=== PATIENT | female | born 1965 | race African-American/Black ===

== ENCOUNTER → 2016-05-21 | Day surgery (SDC) | payer OTHER ==
[~2016-05-21] MED LIST: ASPI81TA2 PO; CALC600T4 PO; FENTANYL PF 100 MCG/2 ML VIAL. ONE; IV RINGERS,LACTATED 1000ML 1,000 ML IV SCH; LIDOCAINE 2% PF Vial for OR 5 ML VIAL. ONE; LOSA1TAB16 PO; OMEG1CAP28 PO; OMEP20CA9 PO; PROPOFOL 20 ML IV ONE; VENL150C6 PO
[2016-05-21 10:39] VITALS: BP 119/71
== END | disposition home or self-care (01) ==
LOC: ENDOS 09:29
PROVIDERS: ATTEND Internal Medicine Gastroenterology
DX: K29.50 Unspecified chronic gastritis without bleeding (principal); K21.9 Gastro-esophageal reflux disease without esophagitis; I10 Essential (primary) hypertension; F41.9 Anxiety disorder, unspecified; F32.9 Major depressive disorder, single episode, unspecified; Z83.3 Family history of diabetes mellitus
CPT/HCPCS: 43235; J2704; J3010

== ENCOUNTER → 2016-10-08 | Outpatient (CLI) | payer OTHER ==
[2016-05-21 10:39] VITALS: BP 119/71
[~2016-10-08] MED LIST changes: +ASPI-630 PO; -ASPI81TA2 PO; -FENTANYL PF 100 MCG/2 ML VIAL. ONE; -IV RINGERS,LACTATED 1000ML 1,000 ML IV SCH; -LIDOCAINE 2% PF Vial for OR 5 ML VIAL. ONE; -PROPOFOL 20 ML IV ONE
== END | disposition home or self-care (01) ==
LOC: LAB 14:12
PROVIDERS: ATTEND Physician Assistant
DX: R10.30 Lower abdominal pain, unspecified (principal); R19.7 Diarrhea, unspecified
CPT/HCPCS: 36415

== ENCOUNTER → 2016-12-22 | Outpatient (CLI) | payer OTHER ==
[2016-05-21 10:39] VITALS: BP 119/71
[2016-12-22 09:00] LABS: BASO % 1 % (0-3); EOS % 1 % (0-3); HEMOGLOBIN 13.5 g/dL (12.0-15.5); LYMPH # 1.1 x10^3/uL (1.0-4.8); LYMPH % 23 % (24-48); MEAN CORPUSCULAR HEMOGLOBIN 29 pg (25-35); MEAN CORPUSCULAR HGB CONC 33 g/dL (31-37); MEAN CORPUSCULAR VOLUME 88 fL (79-100); MONO % 9 % (0-9); NEUT % 67 % (31-73); PLATELET COUNT 235 x10^3/uL (140-400); RED BLOOD COUNT 4.68 x10^6/uL (3.50-5.40); RED CELL DISTRIBUTION WIDTH 13.9 % (11.5-14.5); WHITE BLOOD COUNT 4.9 x10^3/uL (4.0-11.0)
[2016-12-22 09:11] LABS: ALBUMIN/GLOBULIN RATIO 1.1 (1.0-1.7); CALCIUM 8.7 mg/dL (8.5-10.1); CREATININE 0.8 mg/dL (0.6-1.0); GFR 92.2; POTASSIUM 4.3 mmol/L (3.5-5.1); TOTAL BILIRUBIN 0.4 mg/dL (0.2-1.0); TOTAL PROTEIN 7.5 g/dL (6.4-8.2)
== END | disposition home or self-care (01) ==
LOC: LAB 08:09
PROVIDERS: ATTEND Physician Assistant
DX: I10 Essential (primary) hypertension (principal); R10.13 Epigastric pain; R63.4 Abnormal weight loss
CPT/HCPCS: 36415; 80053; 84443; 85025

== ENCOUNTER → 2017-02-11 | Day surgery (SDC) | payer OTHER ==
[~2017-02-11] MED LIST changes: +IV RINGERS,LACTATED 1000ML 1,000 ML IV SCH; +LIDOCAINE 1% PF 2 ML VIAL. ID PRN; -LOSA1TAB16 PO; +LOSA1TAB19 PO; +MIDAZOLAM HCL/PF 2 MG/2 ML VIAL. IV PRN; +PROPOFOL 20 ML IV ONE; +fentaNYL PF VIAL 100 MCG/2 ML VIAL IV PRN
[2017-02-11 10:37] VITALS: BP 162/88
--- NOTE | 2017-02-11 22:39 | HP ---
ADMIT DATE: 02/11/2017 REFERRING PHYSICIAN: BAYRON Carey REASON FOR CONSULTATION: Abdominal pain and weight loss. HISTORY OF PRESENT ILLNESS: A 51-year-old -[place] female whose past medical history is significant for anxiety, depression and hypertension seen with persistent upper abdominal pain, is not associated with any diarrhea, constipation, melena or hematochezia. Family history is unrevealing for colon polyps or colon cancer. Her weight has not decreased in the recent past with a decreased appetite. The patient has had some relief of her symptoms with omeprazole 20 mg daily, but when stops has recurrent symptoms and continued issues. She is here today for further evaluation. PAST MEDICAL HISTORY: Hypertension, anxiety and depression. ALLERGIES: None. MEDICATIONS: Include: Losartan, omeprazole and ____. FAMILY AND SOCIAL HISTORY: Significant for hypertension and diabetes with her mother. She is a daily smoker and nondrinker. PAST SURGICAL HISTORY: Hysterectomy. REVIEW OF SYSTEMS: Per records. PHYSICAL EXAMINATION: GENERAL: Reveals a well-nourished, well-developed -[place] female. VITAL SIGNS: Temperature is 98, pulse 67 and respirations 18. HEENT: Normocephalic and atraumatic head. Pupils and extraocular muscles are not tested. Sclerae anicteric. NECK: Supple. LUNGS: Clear. CARDIOVASCULAR: Reveals S1, S2 without S3, S4 or appreciable murmur. ABDOMEN: Soft abdomen, normal bowel sounds, without appreciable hepatosplenomegaly. EXTREMITIES: Reveals no cyanosis, clubbing or edema. IMPRESSION: Abdominal pain with weight loss, etiology is to be determined. Recommend colonoscopy today to assess for inflammatory bowel disease, colon polyps or colon cancer. Risks and benefits have been discussed with the patient including the risk of perforation. She is willing to proceed at this time. JUDIE STALLWORTH MD DR: URMILA/jason JOB#: [id number] / [id number]
== END | disposition home or self-care (01) ==
LOC: SURG 08:44
PROVIDERS: ATTEND Internal Medicine Gastroenterology
DX: K64.0 First degree hemorrhoids (principal); I10 Essential (primary) hypertension; K21.9 Gastro-esophageal reflux disease without esophagitis; F41.9 Anxiety disorder, unspecified; F32.9 Major depressive disorder, single episode, unspecified; Z90.710 Acquired absence of both cervix and uterus; Z72.0 Tobacco use
CPT/HCPCS: 45378; J2704

== ENCOUNTER → 2017-02-18 | Outpatient (CLI) | payer OTHER ==
[2017-02-11 10:37] VITALS: BP 162/88
[~2017-02-18] MED LIST changes: +IOHEXOL 240 MG/ML 50ML VIAL. PO ONE; +IOHEXOL 300 MG/ML 100ML VIAL. IV ONE; -IV RINGERS,LACTATED 1000ML 1,000 ML IV SCH; -LIDOCAINE 1% PF 2 ML VIAL. ID PRN; -MIDAZOLAM HCL/PF 2 MG/2 ML VIAL. IV PRN; -PROPOFOL 20 ML IV ONE; -fentaNYL PF VIAL 100 MCG/2 ML VIAL IV PRN
--- NOTE | 2017-02-18 12:45 | RAD ---
CT abdomen and pelvis with contrast 02/18/2017 Clinical indication: Abdominal pain and weight loss. Comparison: CT abdomen and pelvis without contrast 10/25/2014 Technique: Multiple CT images of the abdomen and pelvis were obtained following the intravenous menstruation of 75 mL Omnipaque 300. RS Compliance Statement: One or more of the following individualized dose reduction techniques were utilized for this examination: 1. Automated exposure control 2. Adjustment of the mA and/or kV according to patient size 3. Use of iterative reconstruction technique Findings: Heart size is normal. Visualized lung bases are clear. The liver is normal in size and morphology. There is focal fatty infiltration the liver adjacent to the falciform. There is a stable 0.4 cm hypodensity in hepatic segment 7 series 3/image 13. There is a new 0.5 cm hepatic hypodensity in segment 2 series 3/image 11. Gallbladder, spleen, adrenal glands, pancreas and kidneys are unremarkable. No bile duct dilatation. Abdominal aorta is normal caliber with mild calcified atheromatous disease. No retroperitoneal or mesenteric lymphadenopathy. No abdominal free fluid. Small and large bowel loops are normal in caliber without obstruction. Appendix is normal in appearance. Urinary bladder is decompressed prior hysterectomy with the vaginal cuff unremarkable. There is asymmetric enlargement of the left ovary relative to the right measuring 3.2 cm series 3/image 58. No pelvic free fluid. No iliac or inguinal lymphadenopathy. Impression: 1. No discrete hepatic mass or lymphadenopathy. 2. Asymmetric enlargement of the left ovary relative to the right which may be physiologic. Follow-up transvaginal ultrasound is recommended to exclude underlying mass. 3. Two subcentimeter hepatic hypodensities, one of which has developed since 2014, and is too small to definitely characterize.
== END | disposition home or self-care (01) ==
LOC: CT 10:33
PROVIDERS: ATTEND Internal Medicine Gastroenterology
DX: R10.9 Unspecified abdominal pain (principal); R63.4 Abnormal weight loss
CPT/HCPCS: 74177; Q9966; Q9967

== ENCOUNTER → 2017-03-21 | Outpatient (CLI) | payer OTHER ==
[2017-02-11 10:37] VITALS: BP 162/88
[~2017-03-21] MED LIST changes: -IOHEXOL 240 MG/ML 50ML VIAL. PO ONE; -IOHEXOL 300 MG/ML 100ML VIAL. IV ONE
--- NOTE | 2017-03-21 17:09 | RAD ---
DATE: 03/21/2017 EXAM: DIGITAL SCREEN BILAT W/CAD HISTORY: Screening mammogram COMPARISON: Previous mammogram from 2016 and 2014 This study was interpreted with the benefit of Computerized Aided Detection (CAD). FINDINGS: Breast Density: HETERO The breast parenchyma Is heterogeneously dense, which could reduce sensitivity of mammography. Breast parenchyma level C. This skin and nipples are within normal limits. No suspicious calcifications, spiculated mass or areas of architectural distortion. IMPRESSION: No mammographic evidence of malignancy. Stable mammogram. BI-RADS CATEGORY: 2 BENIGN FINDING(S) RECOMMENDED FOLLOW-UP: 12M 12 MONTH FOLLOW-UP PQRS compliance statement: Patient information was entered into a reminder system with a target due date for the next mammogram. Mammography is a sensitive method for finding small breast cancers, but it does not detect them all and is not a substitute for careful clinical examination. A negative mammogram does not negate a clinically suspicious finding and should not result in delay in biopsying a clinically suspicious abnormality. "Our facility is accredited by the [employer] Mammography Program."
== END | disposition home or self-care (01) ==
LOC: MAMMO 13:37
PROVIDERS: ATTEND Physician Assistant
DX: Z12.31 Encounter for screening mammogram for malignant neoplasm of breast (principal)
CPT/HCPCS: G0202; 77067

== ENCOUNTER → 2017-04-19 | Outpatient (CLI) | payer OTHER ==
[2017-04-19 09:28] LABS: ANION GAP 9 (6-14); BLOOD UREA NITROGEN 9 mg/dL (7-20); CALCIUM 8.8 mg/dL (8.5-10.1); CARBON DIOXIDE 31 mmol/L (21-32); CHLORIDE 100 mmol/L (98-107); CHOLESTEROL 215 mg/dL (0-200); CHOLESTEROL/HDL RATIO 2.2; CREATININE 0.7 mg/dL (0.6-1.0); GFR 107.6; GLUCOSE 96 mg/dL (70-99); HDLC 100 mg/dL (40-60); LDLC 106 mg/dL (0-100); NON-HDL CHOLESTEROL 115 mg/dL (0-129); POTASSIUM 4.4 mmol/L (3.5-5.1); SODIUM 140 mmol/L (136-145); TRIGLYCERIDES 46 mg/dL (0-150); VLDLC 9 mg/dL (0-40)
[2017-04-19 09:31] LABS: THYROID STIM HORMONE (TSH) 1.995 uIU/mL (0.358-3.74)
[2017-04-19 09:58] LABS: VITAMIN-B12 524 pg/mL (247-911)
[2017-04-19 09:58] LABS: FOLATE 8.59 ng/ml (3.2-20.0)
[2017-04-19 19:17] LABS: HEMOGLOBIN A1C 5.3 % (4.8-5.6)
[2017-04-20 22:12] LABS: LEAD LEVEL 1 ug/dL (0-19)
== END | disposition home or self-care (01) ==
LOC: LAB 08:22
DX: Z13.220 Encounter for screening for lipoid disorders (principal); Z13.1 Encounter for screening for diabetes mellitus; G62.9 Polyneuropathy, unspecified
CPT/HCPCS: 36415; 80048; 80061; 82607; 82746; 83036; 83655; 84443

== ENCOUNTER → 2017-05-13 | Outpatient (CLI) | payer OTHER | END | disposition home or self-care (01) | LOC: US 15:03 | DX: N83.201 Unspecified ovarian cyst, right side (principal); N83.202 Unspecified ovarian cyst, left side | CPT/HCPCS: 76830; 76856 ==

== ENCOUNTER → 2017-05-25 | Outpatient (CLI) | payer OTHER ==
[2017-05-25 20:14] LABS: CA 125 15.8 U/mL (0.0-38.1)
== END | disposition home or self-care (01) ==
LOC: LAB 14:06
DX: N83.209 Unspecified ovarian cyst, unspecified side (principal); R30.0 Dysuria
CPT/HCPCS: 36415; 86304; 87086

== ENCOUNTER → 2017-11-09 | Outpatient (CLI) | payer OTHER ==
[2017-11-09 07:59] LABS: ADD MAN DIFF? NO
[2017-11-09 08:17] LABS: BASO # 0.1 x10^3/uL (0.0-0.2); BASO % 2 % (0-3); EOS # 0.1 x10^3/uL (0.0-0.7); EOS % 2 % (0-3); HEMOGLOBIN 13.9 g/dL (12.0-15.5); LYMPH # 1.4 x10^3/uL (1.0-4.8); LYMPH % 33 % (24-48); MEAN CORPUSCULAR HEMOGLOBIN 28 pg (25-35); MEAN CORPUSCULAR HGB CONC 33 g/dL (31-37); MEAN CORPUSCULAR VOLUME 85 fL (79-100); MONO # 0.4 x10^3/uL (0.0-1.1); MONO % 8 % (0-9); NEUT # 2.3 x10^3uL (1.8-7.7); NEUT % 55 % (31-73); PLATELET COUNT 232 x10^3/uL (140-400); RED BLOOD COUNT 4.92 x10^6/uL (3.50-5.40); RED CELL DISTRIBUTION WIDTH 13.3 % (11.5-14.5); WHITE BLOOD COUNT 4.3 x10^3/uL (4.0-11.0)
[2017-11-09 08:35] LABS: ALBUMIN 3.7 g/dL (3.4-5.0); ALK PHOS 61 U/L (46-116); ALT (SGPT) 38 U/L (14-59); ANION GAP 6 (6-14); AST (SGOT) 24 U/L (15-37); BLOOD UREA NITROGEN 11 mg/dL (7-20); BUN/CREATININE RATIO 14 (6-20); CALCIUM 8.8 mg/dL (8.5-10.1); CARBON DIOXIDE 31 mmol/L (21-32); CHLORIDE 101 mmol/L (98-107); CHOLESTEROL 194 mg/dL (0-200); CHOLESTEROL/HDL RATIO 2.3; CREATININE 0.8 mg/dL (0.6-1.0); GFR 91.9; GLUCOSE 96 mg/dL (70-99); HDLC 84 mg/dL (40-60); LDLC 103 mg/dL (0-100); NON-HDL CHOLESTEROL 110 mg/dL (0-129); POTASSIUM 3.6 mmol/L (3.5-5.1); SODIUM 138 mmol/L (136-145); TOTAL BILIRUBIN 0.4 mg/dL (0.2-1.0); TOTAL PROTEIN 7.5 g/dL (6.4-8.2); TRIGLYCERIDES 33 mg/dL (0-150); VLDLC 7 mg/dL (0-40)
[2017-11-09 08:45] LABS: THYROID STIM HORMONE (TSH) 2.566 uIU/mL (0.358-3.74)
[2017-11-09 08:45] LABS: FREE T4 0.87 ng/dL (0.76-1.46)
[2017-11-09 14:33] LABS: FSH 124.1 mIU/mL (.); LUTEINIZING HORMONE 83.4 mIU/mL (.)
[2017-11-11 15:33] LABS: ESTRONE LEVEL 14 pg/mL (.)
== END | disposition home or self-care (01) ==
LOC: LAB 06:47
DX: I10 Essential (primary) hypertension (principal); E78.5 Hyperlipidemia, unspecified; R23.2 Flushing; Z87.891 Personal history of nicotine dependence
CPT/HCPCS: 36415; 80053; 80061; 82679; 83001; 83002; 84439; 84443; 85025

== ENCOUNTER → 2018-03-14 | Outpatient (CLI) | payer OTHER ==
[2017-02-11 10:37] VITALS: BP 162/88
--- NOTE | 2018-03-14 16:15 | RAD ---
Exam performed: Nuclear medicine hepatobiliary scan. History: Intermittent epigastric abdominal pain for 4 months Comparison: None available FINDINGS: Following intravenous administration of 5.5 mCi of Choletec tagged with Tc, sequential gamma camera images of the right upper quadrant of the abdomen were obtained. There is prompt accumulation of radionuclide in the liver which appears to be unremarkable Prompt accumulation in the central intrahepatic biliary radicals, gallbladder, common bile duct and small bowel is noted. Patient was given liquid meal and gallbladder ejection fraction was calculated which measures 49% Impression: 1. No evidence of cystic duct obstruction. 2. Normal gallbladder ejection fraction. Electronically signed by: Vin Joe MD (03/14/2018 4:12 PM) [place] [id number]
--- NOTE | 2018-03-14 16:26 | RAD ---
Examination: Ultrasound abdomen complete HISTORY: History of epigastric pain COMPARISON: None available FINDINGS: The visualized pancreas grossly appears unremarkable. The visualized aorta, IVC is within normal limits of dimension. The echogenicity of the liver grossly appears unremarkable. The right lobe of the liver measures 14.1 cm. No evidence of gallstones. The common bile duct measures 2.2 mm in diameter. The right kidney measures 10.1 cm in length. The spleen measures 8.6 cm in length. The left kidney measures 10.6 cm in length. Impression: Unremarkable visualized exam. Electronically signed by: Vin Joe MD (03/14/2018 4:22 PM) [place] [id number]
== END | disposition home or self-care (01) ==
LOC: US 07:23
PROVIDERS: ATTEND Internal Medicine Gastroenterology
DX: R10.13 Epigastric pain (principal)
CPT/HCPCS: 76700; 78227; A9537

== ENCOUNTER → 2018-03-30 | Outpatient (CLI) | payer OTHER ==
[2017-02-11 10:37] VITALS: BP 162/88
--- NOTE | 2018-03-31 15:09 | RAD ---
DATE: 03/30/2018 EXAM: MAMMO LÁZARO SCREENING BILATERAL HISTORY: Routine screening COMPARISON: 03/21/2017, 03/18/2016, 03/17/2015 This study was interpreted with the benefit of Computerized Aided Detection (CAD). Breast Density: HETERO The breast parenchyma is heterogenously dense, which could reduce sensitivity of mammography. Breast parenchyma level C. FINDINGS: 2-D and 3-D tomosynthesis imaging was performed in CC and MLO projections. No spiculated mass or architectural distortion is evident. There are a few scattered microcalcifications in the breasts. These include a cluster in the lateral aspect of the right breast. These are only intermittently visualized in the cc projection on previous studies due to their posterior location. These are visible on the cc view from the 03/17/2015 exam. These calcifications may have progressed slightly. IMPRESSION: Clustered microcalcifications laterally in the right breast. Magnification CC and straight mediolateral views are suggested for optimal characterization. BI-RADS CATEGORY: 0 INCOMPLETE: NEEDS ADDITIONAL IMAGING EVALUATION AND/OR PRIOR MAMMOGRAMS FOR COMPARISON. RECOMMENDED FOLLOW-UP: ADD ADDITIONAL IMAGING PQRS compliance statement: Patient information was entered into a reminder system with a target due date for the next mammogram. Mammography is a sensitive method for finding small breast cancers, but it does not detect them all and is not a substitute for careful clinical examination. A negative mammogram does not negate a clinically suspicious finding and should not result in delay in biopsying a clinically suspicious abnormality. "Our facility is accredited by the [employer] Mammography Program."
== END | disposition home or self-care (01) ==
LOC: MAMMO 15:02
PROVIDERS: ATTEND Physician Assistant Medical
DX: Z12.31 Encounter for screening mammogram for malignant neoplasm of breast (principal)
CPT/HCPCS: 77063; 77067

== ENCOUNTER → 2018-04-10 | Outpatient (CLI) | payer OTHER ==
[2017-02-11 10:37] VITALS: BP 162/88
--- NOTE | 2018-04-10 13:19 | RAD ---
DATE: 04/10/2018 EXAM: DIGITAL DIAGNOSTIC RT HISTORY: Microcalcifications COMPARISON: 03/30/2018, 03/21/2017, 03/18/2016, 03/17/2015. This study was interpreted with the benefit of Computerized Aided Detection (CAD). Breast Density: HETERO The breast parenchyma is heterogenously dense, which could reduce sensitivity of mammography. Breast parenchyma level C. FINDINGS: Additional CC magnification and straight medial lateral views of the right breast were obtained and correlated with the screening images.There are faint microcalcifications present laterally and posteriorly. Many of these were present in retrospect on the previous studies. They tend to be rounded and somewhat scattered. The findings favor a benign etiology such as sclerosing adenosis. IMPRESSION: Probably benign right breast microcalcifications. Mammographic surveillance consisting of right mammograms in 6 months and bilateral mammography at one year is suggested. BI-RADS CATEGORY: 3 PROBABLY BENIGN FINDING(S)-SHORT INTERVAL FOLLOW-UP SUGGESTED RECOMMENDED FOLLOW-UP: 6M 6 MONTH FOLLOW-UP PQRS compliance statement: Patient information was entered into a reminder system with a target due date for the next mammogram. Mammography is a sensitive method for finding small breast cancers, but it does not detect them all and is not a substitute for careful clinical examination. A negative mammogram does not negate a clinically suspicious finding and should not result in delay in biopsying a clinically suspicious abnormality. "Our facility is accredited by the [employer] Mammography Program."
== END | disposition home or self-care (01) ==
LOC: MAMMO 12:31
PROVIDERS: ATTEND Physician Assistant Medical
DX: R92.8 Other abnormal and inconclusive findings on diagnostic imaging of breast (principal)
CPT/HCPCS: 77065

== ENCOUNTER → 2018-05-31 | Outpatient (CLI) | payer OTHER ==
[2017-02-11 10:37] VITALS: BP 162/88
[~2018-05-31] MED LIST changes: +GABA300C18 PO; +OMEP20CA10 PO; -OMEP20CA9 PO; +PANT20TA2 PO; +SUCR1TAB PO
--- NOTE | 2018-05-31 12:37 | RAD ---
EXAM: Nuclear gastric emptying scan. HISTORY: Pain. COMPARISON: None. TECHNIQUE: Serial static images were obtained over the stomach following oral administration of 1 mCi of 99m-Tc sulfur colloid. FINDINGS: The stomach empties into the small bowel without evidence of reflux in the area of the esophagus. The estimated time for half emptying of gastric contents, i.e. 'gastric emptying time' is 74 minutes (normal is 66 +/- 22 minutes). There is 62% retained tracer activity within the stomach at one hour, 14% retained tracer activity at 2 hours, 4% retained tracer activity at 3 hours, and 1% retained tracer activity at 4 hours. IMPRESSION: Normal gastric imaging scan. The gastric emptying half-time is within normal limits. Electronically signed by: Zuri Knox MD (05/31/2018 12:34 PM) [facility]
== END | disposition home or self-care (01) ==
LOC: NM 07:34
PROVIDERS: ATTEND Internal Medicine Gastroenterology
DX: R10.13 Epigastric pain (principal)
CPT/HCPCS: 78264; A9541

== ENCOUNTER → 2018-06-30 | Day surgery (SDC) | payer OTHER ==
[~2018-06-30] MED LIST changes: +IV RINGERS,LACTATED 1000ML 1,000 ML IV SCH; +LIDOCAINE 2% PF 5 ML VIAL. ONE; +PROPOFOL 20 ML IV ONE
[2018-06-30 11:24] VITALS: BP 155/91
--- NOTE | 2018-07-01 01:55 | CONS ---
DATE OF CONSULTATION: 06/30/2018 HISTORY OF PRESENT ILLNESS: This is a 52-year-old female with past medical history of anxiety, depression, hypertension, seen with persistent epigastric abdominal pain associated with bloating, belching, nausea. The patient has been on Protonix and Carafate with minimal improvement. Last for hours when present. She has avoided fatty and greasy foods without improvement and has undergone prior emptying study, which was within normal limits and ejection fraction of 49% on her PIPIDA scan and no gallstones seen on ultrasound. With continued issues, she requests additional evaluation. PAST MEDICAL HISTORY: Anxiety, depression, hypertension. ALLERGIES: None. MEDICATIONS: Include gabapentin, losartan, pantoprazole, sucralfate, and venlafaxine. FAMILY AND SOCIAL HISTORY: Significant for diabetes and hypertension with her mother. She is a social drinker, nonsmoker, but currently a smoker. FAMILY HISTORY: Noncontributory. PAST SURGICAL HISTORY: Hysterectomy. REVIEW OF SYSTEMS: Per records. PHYSICAL EXAMINATION: GENERAL: Reveals a well-nourished, well-developed female who is alert and who is alert and cooperative, in no acute distress. VITAL SIGNS: Temperature 97, pulse 72, respiratory rate 20. HEENT: Normocephalic and atraumatic head. Pupils and extraocular muscles are not tested. Sclerae anicteric. NECK: Supple. LUNGS: Clear. CARDIOVASCULAR: Reveals an S1, S2 without S3, S4 or appreciable murmur. ABDOMEN: Reveals epigastric tenderness to deep palpation. EXTREMITIES: Reveals no cyanosis, clubbing, edema. IMPRESSION: Abdominal pain with persistent bloating and belching, normal gastric emptying study and PIPIDA scan, and ultrasound. We will recommend upper endoscopy to further assess for ulcer or celiac disease, non-ulcer dyspepsia. Risks and benefits of the procedure have been discussed with the patient including risk of hemorrhage and perforation and is willing to proceed at this time. If this is unrevealing, then cardiac testing to assess for cardiac disease would be pursued for right coronary artery disease. JUDIE STALLWORTH MD DR: URMILA/jason JOB#: [id number] / [id number]
--- NOTE | 2018-07-03 16:07 | PATHOLOGY ---
[facility] Accession Number: [id number] . 01 Material submitted: . DUODENAL BIOPSY . 01 Clinical history: . Epigastric pain, rule out celiac disease . 02 Diagnosis: Duodenal biopsy: - No significant pathologic abnormalities. LB/07/03/2018 . 02 Comment: Sections of the duodenal biopsy reveal multiple segments of small intestine mucosa. Where best oriented, the mucosal villi show no sprue-like changes or significant inflammatory changes. (JPM/db; 07/03/2018) . 02 Electronically signed: . Bony Torres MD, Pathologist NPI- [id number] . 01 Gross description: . The specimen is received in formalin, labeled "Ezra Maggy, duodenal biopsies", are multiple kerns, mucosal fragments measuring 0.7 x 0.7 x 0.2 cm in aggregate, entirely submitted in A1. ([facility]; 06/30/2018) [facility] . 02 Pathologist provided ICD-10: R10.13 . 02 CPT . 538999 Specimen Comment: A courtesy copy of this report has been sent to Specimen Comment: [phone]. Specimen Comment: Report sent to Performed at: 01 [facility] [address], [place] [id number] MD Ronaldo Mcallister MD Phone: [phone] Performed at: 02 [facility] [address] [place], [place] [id number] MD Bony Torres MD Phone: [phone]
== END | disposition home or self-care (01) ==
LOC: SURG 09:26
PROVIDERS: ATTEND Internal Medicine Gastroenterology
DX: K31.89 Other diseases of stomach and duodenum (principal); R10.13 Epigastric pain; I10 Essential (primary) hypertension; F41.9 Anxiety disorder, unspecified; F32.9 Major depressive disorder, single episode, unspecified; Z79.899 Other long term (current) drug therapy; Z83.3 Family history of diabetes mellitus; Z82.49 Family history of ischemic heart disease and other diseases of the circulatory system; Z72.89 Other problems related to lifestyle; F17.210 Nicotine dependence, cigarettes, uncomplicated; Z90.710 Acquired absence of both cervix and uterus
CPT/HCPCS: 43239; 88305; J2001; J2704

== ENCOUNTER → 2018-08-11 | Outpatient (CLI) | payer OTHER ==
[2018-06-30 11:24] VITALS: BP 155/91
[~2018-08-11] MED LIST changes: -IV RINGERS,LACTATED 1000ML 1,000 ML IV SCH; -LIDOCAINE 2% PF 5 ML VIAL. ONE; -PROPOFOL 20 ML IV ONE; +REGADENOSON 0.4 MG/5 ML DISP.SYRIN. IV ONE
--- NOTE | 2018-08-11 13:53 | RAD ---
MR#: [id number] Date of Study: 08/11/2018 Ordering Physician: LALI CRUZ Referring Physician: KASEY PAK Tech: LIBRADO Zhou APPROVED REPORT Test Type: Pharmacological Stress Nurse/Tech: Nik Marie RN Test Indications: chest pain Cardiac History: HTN Medications: See Electronic Medical Record Medical History: See Electronic Medical Record Resting ECG: SR Resting Heart Rate: 84 bpm Resting Blood Pressure: 136/80mmHg Pretest Chest Pain: None Nurse/Tech Notes Lungs CTA, S1S2. Pt first atttempted treadmill but was unable to reach target heartrate Consent: The procedure was explained to the patient in lay terms. Informed consent was witnessed. Alverto eout was entered into ice. History and Stress Test performed by Nik Marie RN Pharm. Details Pharmacologic stress testing was performed using 0.4mg per 5ml of regadenoson given intravenously ove r 7-10 seconds. Stress Symptoms Dyspnea POST EXERCISE Reason for Termination: Infusion complete Max HR: 116 bpm Max Blood Pressure: 128/78mmHg Blood Pressure response to exercise: Normal blood pressure response during stress. Heart Rate response to exercise: normal response Chest Pain: No. Arrhythmia: No. ST Change: No. INTERPRETATION Stress EKG Conclusion: Baseline EKG showed sinus rhythm. No ischemic changes at peak stress. No arr hythmias. Imaging Protocol IMAGE PROTOCOL: Rest Tc-99m/stress Tc-99m 1 day Rest: Stress: Viability: Radiopharm.Tc99m KhvxvrngsIc20z Sestamibi Dose10.2mCi 33mCi Duration 16min. 13min. Img Date 08/11/2018 08/11/2018 Inj-Img Isui56dwa. 60min. Rest Admin Site:IV - Right ForearmAdministrator:Zuri Dahl, RT (R)(N) Stress Admin Site: IV - Right ForearmAdministrator: KASEY ArzolaTCJulissa, ARRT (R)(N) STRESS DATA End Diast. Vol.73.0mlLVEDV index BSA42.0ml End Syst. Vol.22.0mlLVESV index BSA13.0ml Myocardial Kgud516.0gEject. Ootwvpaj76.0% Stress Scores Regional WT1.00Summed WT4.00 Regional WM0.00Summed WM0.00 Study quality was good. Left Ventricular size was Normal at Rest and Stress. Lung uptake was . Left Ventricular ejection fraction is 70%. The rest and stress images show normal perfusion, normal contraction and thickening. LV Perf. Quant 17 Seg. SSS0.00 17 Seg. SRS0.00 17 Seg. SDS0.00 Stress Defect Extent (% LAD)0.00Rest Defect Extent (% LAD)0.00Rev. Defect Extent (% LAD)0.00 Stress Defect Extent (% LCX) 0.00Rest Defect Extent (% LCX)0.00Rev. Defect Extent (% LCX)0.00 Stress Defect Extent (% RCA)0.00Rest Defect Extent (% RCA)0.00Rev. Defect Extent (% RCA)0.00 Stress Defect Extent (% RIC)0.00Rest Defect Extent (% RIC)0.00Rev. Defect Extent (% RIC)0.00 Conclusion 1. Regadenoson cardioisotope stress test did not show any evidence of ischemia or infarct. 2. Normal left ventricular systolic function with ejection fraction calculated at 70%. 3. Low risk for cardiac events. Signed by : Lali Cruz, Electronically Approved : 08/11/2018 13:52:57
== END | disposition home or self-care (01) ==
LOC: NM 08:28
PROVIDERS: ATTEND Internal Medicine Cardiovascular Disease
DX: R07.9 Chest pain, unspecified (principal); I10 Essential (primary) hypertension
CPT/HCPCS: 78452; 93017; A9500; J2785

== ENCOUNTER → 2018-09-01 | Outpatient (CLI) | payer OTHER ==
[2018-06-30 11:24] VITALS: BP 155/91
[~2018-09-01] MED LIST changes: -REGADENOSON 0.4 MG/5 ML DISP.SYRIN. IV ONE
--- NOTE | 2018-09-01 16:31 | CARD ---
MR#: [id number] Date of Study: 09/01/2018 Ordering Physician: LALI CRUZ, Referring Physician: LALI CRUZ Tech: Ivy Frost RDCS APPROVED REPORT EXAM: Two-dimensional and M-mode echocardiogram with Doppler and color Doppler. Other Information Quality : AverageHR: 65bpm Rhythm : NSR INDICATION Chest Pain 2D DIMENSIONS RVDd2.3 (2.9-3.5cm)Left Atrium(2D)2.6 (1.6-4.0cm) IVSd0.8 (0.7-1.1cm)Aortic Root(2D)3.1 (2.0-3.7cm) LVDd4.4 (3.9-5.9cm)LVOT Diameter2.1 (1.8-2.4cm) PWd0.8 (0.7-1.1cm)LVDs3.4 (2.5-4.0cm) FS (%) 22.4 %SV40.5 ml LVEF(%)46.0 (>50%) M-Mode DIMENSIONS RVDd2.18 (2.1-3.2cm)Left Atrium(MM)2.86 (2.5-4.0cm) IVSd0.65 (0.7-1.1cm)Aortic Root3.12 (2.2-3.7cm) LVDd4.61 (4.0-5.6cm)PWd0.86 (0.7-1.1cm) IVSs0.91 cmFS (%) 24 % LVDs3.50 (2.0-3.8cm)ESV(Teich)50.9 ml PWs1.11 cmLVEF(%)48 (>50%) Aortic Valve AoV Peak [place].112.0cm/sAoV VTI23.1cm AO Peak GR.5.0mmHgLVOT Peak [place].71.6cm/s AO Mean GR.3mmHgAVA (VMAX)2.16cm2 AJIT (VTI)2.20cm2 Mitral Valve MV E Vkvwgllc95.1cm/sMV E Peak Gr.2mmHg MV DECEL [id number] A Qhlrqdlh36.2cm/s MV E Mean Gr.1mmHgE/A Ratio1.2 MV A Jiosxjih044qg Pulmonary Valve PV Peak Nwgatixw38.3cm/s Pulmonary Vein S1 Ldgehlkb51.7cm/sD2 Rluvojvk45.6cm/s PVa rkoxjbck21cpfr LEFT VENTRICLE The left ventricle is normal size. There is normal left ventricular wall thickness. Left ventricle sy stolic function is low normal. The Ejection Fraction is 50%. There is normal LV segmental wall motion . Transmitral Doppler flow pattern is Grade II-pseudonormal filling dynamics. RIGHT VENTRICLE The right ventricle is normal size. There is normal right ventricular wall thickness. The right ventr icular systolic function is normal. ATRIA The left atrium size is normal. The right atrium size is normal. The interatrial septum is intact wit h no evidence for an atrial septal defect or patent foramen ovale as noted on 2-D or Doppler imaging. AORTIC VALVE The aortic valve is not well visualized. Doppler and Color Flow revealed no significant aortic regurg itation. There is no significant aortic valvular stenosis. There is no aortic valvular vegetation. MITRAL VALVE The mitral valve is normal in structure and function. There is no evidence of mitral valve prolapse. There is no mitral valve stenosis. Doppler and Color Flow revealed no mitral valve regurgitation note d. TRICUSPID VALVE The tricuspid valve is normal in structure and function. Doppler and Color Flow revealed no tricuspid valve regurgitation noted. There is no tricuspid valve prolapse or vegetation. There is no tricuspid valve stenosis. PULMONIC VALVE The pulmonic valve is not well visualized. GREAT VESSELS The aortic root is normal in size. The ascending aorta is normal in size. The IVC is normal in size a nd collapses >50% with inspiration. PERICARDIAL EFFUSION There is no evidence of significant pericardial effusion. Critical Notification Critical Value: No <Conclusion> Left ventricle systolic function is low normal. The Ejection Fraction is 50%. There is normal LV segmental wall motion. Signed by : Roger Shelton, Electronically Approved : 09/01/2018 16:31:14
== END | disposition home or self-care (01) ==
LOC: ECHO 13:45
PROVIDERS: ATTEND Internal Medicine Cardiovascular Disease
DX: R07.9 Chest pain, unspecified (principal)
CPT/HCPCS: 93306

== ENCOUNTER → 2018-10-02 | Outpatient (CLI) | payer OTHER ==
[2018-06-30 11:24] VITALS: BP 155/91
--- NOTE | 2018-10-03 11:39 | RAD ---
DATE: 10/02/2018 EXAM: DIGITAL DIAGNOSTIC RT HISTORY: Abnormal mammogram COMPARISON: 03/17/2015, 03/18/2016, 03/21/2017 and 03/30/2018 mammographic exams This study was interpreted with the benefit of Computerized Aided Detection (CAD). Breast Density: HETERO The breast parenchyma is heterogenously dense, which could reduce sensitivity of mammography. Breast parenchyma level C. FINDINGS: Calcifications involving the right upper outer breast are again evident without significant change. No new masses or distortion. No suspicious calcification clusters. IMPRESSION: Follow-up at the time of annual mammography is recommended. Spot magnification imaging and mediolateral or lateral medial view of the right breast are recommended. BI-RADS CATEGORY: 3 PROBABLY BENIGN FINDING(S)-SHORT INTERVAL FOLLOW-UP SUGGESTED RECOMMENDED FOLLOW-UP: 6M 6 MONTH FOLLOW-UP PQRS compliance statement: Patient information was entered into a reminder system with a target due date at the time of annual screening for the next mammogram. Mammography is a sensitive method for finding small breast cancers, but it does not detect them all and is not a substitute for careful clinical examination. A negative mammogram does not negate a clinically suspicious finding and should not result in delay in biopsying a clinically suspicious abnormality. "Our facility is accredited by the [employer] Mammography Program."
== END | disposition home or self-care (01) ==
LOC: MAMMO 15:57
PROVIDERS: ATTEND Family Medicine
DX: R92.1 Mammographic calcification found on diagnostic imaging of breast (principal)
CPT/HCPCS: 77065

== ENCOUNTER → 2018-11-27 | Outpatient (CLI) | payer OTHER ==
[2018-06-30 11:24] VITALS: BP 155/91
== END | disposition home or self-care (01) ==
LOC: SPEC 13:05
PROVIDERS: ATTEND Obstetrics & Gynecology
DX: Z01.419 Encounter for gynecological examination (general) (routine) without abnormal findings (principal)
CPT/HCPCS: 88175

== ENCOUNTER → 2018-12-12 | Outpatient (CLI) | payer OTHER ==
[2018-06-30 11:24] VITALS: BP 155/91
[~2018-12-12] MED LIST changes: +CONTRAST GIVEN. MC PRN; +IOHEXOL 240 MG/ML 50ML VIAL. PO ONE; +IOHEXOL 300 MG/ML 100ML VIAL. IV ONE
--- NOTE | 2018-12-12 15:50 | RAD ---
Examination: CT ABDOMEN WO/W CONTRAST History: Chronic cholecystitis, liver nodule, weight loss Comparison/Correlation: 02/18/2017 CT abdomen and pelvis with oral and IV contrast Findings: Axial images of the abdomen were obtained prior to and following IV contrast administration. Post contrast imaging was performed in the arterial and hepatic venous phases. Oral contrast was administered. Visualized lung bases are clear. Liver, spleen, pancreas, adrenal glands, and kidneys are unremarkable. Few very small to characterize low-attenuation lesions involving the liver are unchanged compared to prior exam. These are of indeterminate significance and do not enhance. Gallbladder fossa is unremarkable. No radiopaque upper collecting system calculi. No enlarged upper abdominal lymph nodes. Large quantity of stool is present within colon. No extraluminal gas or bowel obstruction involving the visualized bowel. No upper abdominal ascites. Impression: No acute process. Large quantity of stool in the colon. No suspicious hepatic lesion. PQRS Compliance Statement: One or more of the following individualized dose reduction techniques were utilized for this examination: 1. Automated exposure control 2. Adjustment of the mA and/or kV according to patient size 3. Use of iterative reconstruction technique Electronically signed by: Santy Arias MD (12/12/2018 3:47 PM) [facility]
== END | disposition home or self-care (01) ==
LOC: CT 07:58
PROVIDERS: ATTEND Internal Medicine
DX: K76.89 Other specified diseases of liver (principal); K81.1 Chronic cholecystitis; R63.4 Abnormal weight loss
CPT/HCPCS: 74170; Q9966; Q9967

== ENCOUNTER → 2019-04-05 | Outpatient (CLI) | payer OTHER ==
[2018-06-30 11:24] VITALS: BP 155/91
[~2019-04-05] MED LIST changes: -CONTRAST GIVEN. MC PRN; -IOHEXOL 240 MG/ML 50ML VIAL. PO ONE; -IOHEXOL 300 MG/ML 100ML VIAL. IV ONE; -OMEP20CA10 PO; +OMEP20CA16 PO
--- NOTE | 2019-04-05 11:02 | RAD ---
DATE: 04/05/2019 EXAM: MAMMO LÁZARO ALEXANDRA MICHAELAT HISTORY: Abnormal mammogram COMPARISON: 03/30/2018 and 03/21/2017 screen mammographic images. 10/02/2018 right unilateral mammographic exam. This study was interpreted with the benefit of Computerized Aided Detection (CAD). Breast Density: HETERO The breast parenchyma is heterogenously dense, which could reduce sensitivity of mammography. Breast parenchyma level C. FINDINGS: Posterior right upper-outer breast calcifications are present. Minimal increase in size of a few of the small coarse calcifications is noted. No suspicious change in calcifications overall otherwise seen. No distortion. No mass. IMPRESSION: No suspicious change BI-RADS CATEGORY: 2 BENIGN FINDING(S) RECOMMENDED FOLLOW-UP: 12M 12 MONTH FOLLOW-UP PQRS compliance statement: Patient information was entered into a reminder system with a target due date for the next mammogram. Mammography is a sensitive method for finding small breast cancers, but it does not detect them all and is not a substitute for careful clinical examination. A negative mammogram does not negate a clinically suspicious finding and should not result in delay in biopsying a clinically suspicious abnormality. "Our facility is accredited by the [employer] Mammography [employer]."
== END | disposition home or self-care (01) ==
LOC: MAMMO 09:42
PROVIDERS: ATTEND Family Medicine
DX: R92.1 Mammographic calcification found on diagnostic imaging of breast (principal)
CPT/HCPCS: 77066; G0279; 77062

== ENCOUNTER → 2020-02-15 | Outpatient (CLI) | payer OTHER ==
[2018-06-30 11:24] VITALS: BP 155/91
[~2020-02-15] MED LIST changes: -CALC600T4 PO; +CALC600T6 PO
[2020-02-15 09:51] LABS: BASO # 0.1 x10^3/uL (0.0-0.2); BASO % 1 % (0-3); EOS # 0.1 x10^3/uL (0.0-0.7); EOS % 2 % (0-3); HEMATOCRIT 41.4 % (36.0-47.0); HEMOGLOBIN 13.4 g/dL (12.0-15.5); LYMPH # 1.2 x10^3/uL (1.0-4.8); LYMPH % 25 % (24-48); MEAN CORPUSCULAR HEMOGLOBIN 28 pg (25-35); MEAN CORPUSCULAR HGB CONC 32 g/dL (31-37); MEAN CORPUSCULAR VOLUME 86 fL (79-100); MONO # 0.4 x10^3/uL (0.0-1.1); MONO % 7 % (0-9); NEUT # 3.2 x10^3/uL (1.8-7.7); NEUT % 65 % (31-73); PLATELET COUNT 241 x10^3/uL (140-400); RED BLOOD COUNT 4.83 x10^6/uL (3.50-5.40); RED CELL DISTRIBUTION WIDTH 13.8 % (11.5-14.5); WHITE BLOOD COUNT 4.9 x10^3/uL (4.0-11.0)
[2020-02-15 09:52] LABS: BILIRUBIN,URINE NEGATIVE (NEG); CLARITY,URINE CLEAR; COLOR,URINE YELLOW; NITRITE,URINE NEGATIVE (NEG); PROTEIN,URINE NEGATIVE (NEG-TRACE); UROBILINOGEN,URINE 0.2 mg/dL (0.2 mg/dL)
[2020-02-15 10:00] LABS: BACTERIA,URINE MODERATE /HPF (0-FEW); RBC,URINE OCC /HPF (0-2)
[2020-02-15 10:02] LABS: ALBUMIN 3.6 g/dL (3.4-5.0); ALBUMIN/GLOBULIN RATIO 0.9 (1.0-1.7); CALCIUM 9.1 mg/dL (8.5-10.1); CREATININE 0.6 mg/dL (0.6-1.0); POTASSIUM 4.6 mmol/L (3.5-5.1); TOTAL BILIRUBIN 0.3 mg/dL (0.2-1.0); TOTAL PROTEIN 7.5 g/dL (6.4-8.2)
[2020-02-15 10:04] LABS: CHOLESTEROL/HDL RATIO 2.2
[2020-02-15 10:09] LABS: FREE T4 0.89 ng/dL (0.76-1.46); THYROID STIM HORMONE (TSH) 1.349 uIU/mL (0.358-3.74)
[2020-02-16 00:10] LABS: HEMOGLOBIN A1C 5.5 % (4.8-5.6)
== END ==
LOC: LAB 06:23
PROVIDERS: ATTEND Physician Assistant
DX: Z13.220 Encounter for screening for lipoid disorders (principal); G90.09 Other idiopathic peripheral autonomic neuropathy; K21.9 Gastro-esophageal reflux disease without esophagitis; E78.5 Hyperlipidemia, unspecified
CPT/HCPCS: 36415; 80053; 80061; 81001; 83036; 84439; 84443; 85025; 87086

== ENCOUNTER → 2020-04-17 | Outpatient (CLI) | payer OTHER ==
[2018-06-30 11:24] VITALS: BP 155/91
--- NOTE | 2020-04-17 10:25 | RAD ---
DATE: 04/17/2020 8:36 AM EXAM: MAMMO LÁZARO SCREENING BILATERAL HISTORY: Screening COMPARISON: 04/05/2019 Bilateral CC and MLO views of the breasts were performed. Bilateral breast tomosynthesis was performed in CC and MLO projections. This study was interpreted with the benefit of Computerized Aided Detection (CAD). FINDINGS: Breast Density: HETERO The breast parenchyma Is heterogeneously dense, which could reduce sensitivity of mammography. Breast parenchyma level C The cluster of calcifications in the posterior upper outer right breast show slight interval coarsening. No suspicious masses, microcalcifications or architectural distortion is present to suggest malignancy in either breast. The visualized axillae are unremarkable. IMPRESSION: No mammographic evidence of malignancy. BI-RADS CATEGORY: 2 BENIGN FINDING(S) RECOMMENDED FOLLOW-UP: 12M 12 MONTH FOLLOW-UP Annual screening mammography is recommended, unless clinically indicated sooner based on symptoms or change in physical exam. PQRS compliance statement: Patient information was entered into a reminder system with a target due date for the next mammogram. Mammography is a sensitive method for finding small breast cancers, but it does not detect them all and is not a substitute for careful clinical examination. A negative mammogram does not negate a clinically suspicious finding and should not result in delay in biopsying a clinically suspicious abnormality. "Our facility is accredited by the [employer] Mammography [employer]."
== END ==
LOC: MAMMO 08:51
PROVIDERS: ATTEND Physician Assistant Medical
DX: Z12.31 Encounter for screening mammogram for malignant neoplasm of breast (principal)
CPT/HCPCS: 77063; 77067

== ENCOUNTER → 2020-07-01 | Outpatient (CLI) | payer OTHER ==
[2018-06-30 11:24] VITALS: BP 155/91
[2020-07-01 17:38] LABS: BILIRUBIN,URINE NEGATIVE (NEG); CLARITY,URINE CLEAR; COLOR,URINE YELLOW; NITRITE,URINE NEGATIVE (NEG); PROTEIN,URINE NEGATIVE (NEG-TRACE); UROBILINOGEN,URINE 0.2 mg/dL (0.2 mg/dL)
[2020-07-01 17:51] LABS: BACTERIA,URINE FEW /HPF (0-FEW)
[2020-07-01 17:52] LABS: RBC,URINE 0 /HPF (0-2)
== END ==
LOC: LAB 17:16
PROVIDERS: ATTEND Physician Assistant Medical
DX: R10.2 Pelvic and perineal pain (principal)
CPT/HCPCS: 81001; 87086

== ENCOUNTER → 2020-10-31 | Outpatient (CLI) | payer OTHER ==
[2018-06-30 11:24] VITALS: BP 155/91
[~2020-10-31] MED LIST changes: -CALC600T6 PO; +CALC600T60 PO
[2020-10-31 14:23] LABS: BASO # 0.1 x10^3/uL (0.0-0.2); BASO % 1 % (0-3); EOS # 0.1 x10^3/uL (0.0-0.7); EOS % 2 % (0-3); HEMATOCRIT 42.3 % (36.0-47.0); HEMOGLOBIN 13.9 g/dL (12.0-15.5); LYMPH # 1.5 x10^3/uL (1.0-4.8); LYMPH % 27 % (24-48); MEAN CORPUSCULAR HEMOGLOBIN 28 pg (25-35); MEAN CORPUSCULAR HGB CONC 33 g/dL (31-37); MEAN CORPUSCULAR VOLUME 85 fL (79-100); MONO # 0.5 x10^3/uL (0.0-1.1); MONO % 9 % (0-9); NEUT # 3.6 x10^3/uL (1.8-7.7); NEUT % 62 % (31-73); PLATELET COUNT 272 x10^3/uL (140-400); RED BLOOD COUNT 4.96 x10^6/uL (3.50-5.40); RED CELL DISTRIBUTION WIDTH 14.1 % (11.5-14.5); WHITE BLOOD COUNT 5.7 x10^3/uL (4.0-11.0)
[2020-10-31 14:25] LABS: CALCIUM 9.4 mg/dL (8.5-10.1); CREATININE 0.7 mg/dL (0.6-1.0); GFR 105.9; POTASSIUM 3.8 mmol/L (3.5-5.1)
== END ==
LOC: LAB 11:14
PROVIDERS: ATTEND Family Medicine
DX: I10 Essential (primary) hypertension (principal); G62.9 Polyneuropathy, unspecified
CPT/HCPCS: 36415; 80048; 82607; 85025

== ENCOUNTER → 2021-02-12 | Outpatient (CLI) | payer OTHER ==
[2018-06-30 11:24] VITALS: BP 155/91
--- NOTE | 2021-02-12 14:46 | RAD ---
3 views lumbar spine without comparison for lumbar back pain. FINDINGS: There is straightening of normal lumbar lordosis. Mild levocurvature, possibly compensatory . Mild narrowing at L5-S1. Remaining intervertebral disc spaces are well-maintained. Minimal facet ar throsis. Atherosclerosis of the aorta. IMPRESSION: 1. Mild straightening of normal lumbar lordosis with no acute osseous or alignment abnormality. Electronically signed by: Misha Xie MD (02/12/2021 2:44 PM) [id number]
== END ==
LOC: RAD 10:43
PROVIDERS: ATTEND Physician Assistant
DX: M48.07 Spinal stenosis, lumbosacral region (principal); I70.0 Atherosclerosis of aorta; M40.46 Postural lordosis, lumbar region
CPT/HCPCS: 72100

== ENCOUNTER → 2021-05-21 | Outpatient (CLI) | payer OTHER ==
[2018-06-30 11:24] VITALS: BP 155/91
--- NOTE | 2021-05-21 12:10 | RAD ---
Bilateral digital screening 2-D and 3-D (tomosynthesis) mammogram: Reason for examination: Routine screening. Comparison is made to previous mammograms from 04/17/2020, 04/05/2019, 04/10/2018, 03/30/2018. Bilateral mammograms in CC and oblique projections were obtained with 2-D imaging and 3-D tomosynthes is imaging and reviewed on the workstation. Interpretation was made with the benefit of CAD. Findings: Breast density: Category C. The breasts are heterogeneously dense, which may obscure small masses. Th ere are small groups of benign-appearing calcifications in the right upper outer quadrant. 2 groups o f punctate calcifications are seen at 9:00 position, 10 cm from the nipple, and in the 9:30 position, 10 cm from the nipple. A small group of benign rounded calcifications are seen in the 11:00 position about 11 cm from the nipple. These do not appear significantly changed since 2018. There are no suspicious masses, malignant appearing calcifications or architectural distortion. Impression: No evidence of malignancy. There are benign calcifications in the right upper outer quadrant at poste rior depth. ASSESSMENT: BI-RADS 2. Benign findings. Recommendations: Routine screening mammograms. This patient's information has been entered into a reminder system for the patient to be notified wit h the results of her examination and a target date for the next mammogram. Your patient's mammogram demonstrates that she has dense breast tissue (breast density category C or D), which could hide abnormalities, and if she has other risk factors for breast cancer that have bee n identified, she might benefit from supplemental screening tests that may be suggested by you as her ordering physician. Dense breast tissue, in and of itself, is a relatively common condition. Therefo re, this information is not provided to cause undue concern, but rather to raise your awareness and t o promote discussion with your patient regarding the presence of other risk factors, in addition to d ense breast tissue. Electronically signed by: Paulette Goldstein MD (05/21/2021 12:07 PM) [id number]
== END ==
LOC: MAMMO 08:17
PROVIDERS: ATTEND Physician Assistant Medical
DX: Z12.31 Encounter for screening mammogram for malignant neoplasm of breast (principal)
CPT/HCPCS: 77063; 77067